=== PATIENT | female | born 1965 | race African-American/Black ===

== ENCOUNTER 2018-10-19 07:05 | Emergency (ER) | payer MEDICAID, OTHER ==
[~2018-10-19] VITALS: Ht 160 cm; Wt 118.2 kg
[~2018-10-19 07:05] MED LIST: DOCU-281 PO; FERR-72 PO; NAPR220T57 PO; [UNRECOGNIZED DRUG - OTHER] OD
[2018-10-19 08:22] VITALS: BP 121/66
== END 2018-10-19 08:40 | disposition home or self-care (01) ==
LOC: EMS 07:07
DX: J06.9 Acute upper respiratory infection, unspecified (principal)